=== PATIENT | male | born 1990 | race Two or more races ===

== ENCOUNTER 2023-08-01 16:19 | Emergency (ER) | payer MEDICAID ==
[~2023-08-01] VITALS: Ht 180.3 cm; Wt 112.0 kg
[2023-08-01 16:38] VITALS: RESP 18
[2023-08-01] MEDS: IBUPROFEN 800 MG TAB PO ONE (19:45)
[2023-08-01] MEDS ORDERED: CEPH500C PO (19:48)
[2023-08-01] MEDS ORDERED: IBUP1TAB5 PO (19:48)
[2023-08-01] MEDS ORDERED: MUPI2OIN2 EX (19:48)
[2023-08-01] MEDS: IBUPROFEN 600 MG TAB PO ONE (20:36)
[2023-08-01] MEDS: LIDOCAINE 1% HCL (LOCAL ANESTH.) INJ 20ML MDV ID ONE (20:38)
[2023-08-01] MEDS: NEOMYCIN-BACITRACIN-POLYM UNITDOSE PKG TOP OINT TOP ONE (20:38)
[2023-08-01] MEDS: TETANUS-DIPTH-ACEL PERTUSSIS 0.5ML SYR Tdap IM ONE (20:38)
[2023-08-01 20:39] VITALS: BP 115/70; PULSE 75; TEMP 98; O2SAT 96
== END 2023-08-01 20:42 | disposition home or self-care (01) ==
LOC: ER 16:19
DX: S81.011A Laceration without foreign body, right knee, initial encounter (principal); W26.8XXA Contact with other sharp object(s), not elsewhere classified, initial encounter; Y93.89 Activity, other specified; Y92.89 Other specified places as the place of occurrence of the external cause; Y99.8 Other external cause status
CPT/HCPCS: 12002; 90471; 90715; 99283; J2001

== ENCOUNTER 2023-12-17 23:12 | Emergency (ER) | payer MEDICAID, OTHER ==
[~2023-12-17] VITALS: Ht 182.9 cm; Wt 101.9 kg
[~2023-12-17 23:12] MED LIST: CEPH500C PO; IBUP1TAB5 PO; MUPI2OIN2 EX
[2023-12-18 01:55] VITALS: BP 123/55; TEMP 98.4
[2023-12-18] MEDS: IOHEXOL 300 MG/ML 100ML BOTTLE IJ ONE (02:08)
[2023-12-18] MEDS: HYDROcodone-ACET 5/325MG TAB PO ONE (03:52)
[2023-12-18 03:54] VITALS: PULSE 68; RESP 18; O2SAT 98
== END 2023-12-18 03:58 | disposition home or self-care (01) ==
LOC: ER 23:12 → EDBD 23:12 → ER 12-18 03:58
DX: S86.092A Other specified injury of left Achilles tendon, initial encounter (principal); Z79.899 Other long term (current) drug therapy; X58.XXXA Exposure to other specified factors, initial encounter; Y93.67 Activity, basketball; Y92.89 Other specified places as the place of occurrence of the external cause; Y99.8 Other external cause status